=== PATIENT | male | born 1955 | race Two or more races ===

== ENCOUNTER 2025-05-31 19:40 | Inpatient (IN) | payer MEDICARE, SELFPAY ==
[2025-05-31 19:42] VITALS: BMI 40.3
[2025-05-31 19:59] VITALS: BP 152/63; PULSE 98; RESP 20; TEMP 37.8; O2SAT 95
--- NOTE | 2025-05-31 20:01 | XR_ITS ---
Examination: CT abdomen and pelvis without contrast. Coronal 3-D reconstructions. Sagittal 2-D reconstructions. Date and time of exam: May 31, 2025, 2011 hours INDICATIONS: Abdominal pain beginning 3 days ago COMPARISON: June 07, 2023 CTDI: vol (mGy): 15 DLP: (mGycm): 1004 Technique: Axial images of the abdomen have been obtained, 3 mm slice thickness Intravenous contrast material has not been administered. Low dose protocols were performed. One or more of the following dose reduction techniques were used; automated exposure control, adjustment of the mA and/or KV according to patient size, use of iterative reconstruction technique. Findings: 6 mm liver cyst No gallstones Spleen not enlarged No pancreatic or adrenal mass Bilateral renal cysts Significant bilateral renal scar formation Perinephric stranding Moderate bilateral hydronephrosis, no renal or ureteral calculi Aorta normal size Marked cystitis pattern, left bladder diverticulum, urinary bladder wall thickening Prostate tissue not depicted Small fat-containing inguinal hernia Prominent osteopenia with advanced degenerative disc disease L4-L5 IMPRESSION: Moderate bilateral hydronephrosis with prominent perinephric stranding and renal scarring Marked cystitis pattern The overall findings are consistent with vesicoureteral reflux and urinary tract infection
--- NOTE | 2025-05-31 20:02 | PD.EDRME ---
Rapid Medical Screening Exam RME Arrival date/time: 05/31/25 19:40 This is a case of 69-year-old male who is here with history of chronic kidney disease prostate cancer surgery of the prostate came in in the emergency room due to generalized abdominal pain and distention with nausea vomiting worsening of the symptoms this decided to start consult here in the emergency room Chief Complaint: Abdominal Pain Time Seen by Provider: 05/31/25 20:01 Vital signs: Vital Signs Temperature 100.1 F 05/31/25 19:59 Pulse Rate 98 05/31/25 19:59 Respiratory Rate 20 05/31/25 19:59 Blood Pressure 152/63 H 05/31/25 19:59 Pulse Oximetry (%) 95 05/31/25 19:59 Oxygen Delivery Method Room Air 05/31/25 19:59 Exam: Generalized tenderness on all quadrants of the abdomen positive guarding with abdominal distention Clinical Impression: Abdominal pain
[2025-05-31 20:27] LABS: Basophils # (Auto) 0.1 Thou/mm3 (0.0-0.2); Basophils % (Auto) 0 % (0-2.5); Eosinophils # (Auto) 0.1 Thou/mm3 (0.0-0.5); Eosinophils % (Auto) 1 % (0-10); Hematocrit 38.6 % (41.0-53.0); Hemoglobin 13.4 g/dL (13.5-16.0); Immature Granulocytes Auto 0.11 Thou/mm3 (0.00-0.00); Lymphocytes # (Auto) 1.4 Thou/mm3 (1.0-4.8); Lymphocytes % (Auto) 7 % (10-50); Mean Corpuscular HGB Conc 34.7 g/dl (31.0-37.0); Mean Corpuscular Hemoglobin 30.0 pg (25.0-35.0); Mean Corpuscular Volume 86 fL (80-100); Monocytes # (Auto) 1.8 Thou/mm3 (0.0-0.8); Monocytes % (Auto) 9 % (0-12); Neutrophils # (Auto) 16.3 Thou/mm3 (1.8-7.7); Neutrophils % (Auto) 82 % (37-80); Nucleated Red Blood Cell # 0.00 Thou/mm3 (0.00-0.00); Nucleated Red Blood Cell % 0 /100 WBC (0); Platelet Count 143 Thou/mm3 (140-440); RDW Standard Deviation 42.2 fL (35.1-43.9); Red Blood Count 4.47 Miln/mm3 (4.50-5.90); White Blood Count 19.7 Thou/mm3 (3.8-10.6)
[2025-05-31 20:50] LABS: Alanine Aminotransferase 8 U/L (10-49); Albumin, Serum 4.5 gm/dL (3.4-4.8); Albumin/Globulin Ratio 1.5 (1.2-2.2); Alkaline Phosphatase 93 U/L (46-116); Anion Gap 11 (7-16); Aspartate Amino Transferase < 8 U/L (0-34); BUN/Creatinine Ratio 8 Ratio (12-20); Bilirubin,Total 0.8 mg/dL (0.3-1.2); Blood Urea Nitrogen 34 mg/dL (9-23); Calcium 8.9 mg/dL (8.3-10.6); Calcium (Corrected) 8.9 mg/dL (8.5-10.1); Carbon Dioxide 23.6 mMol/L (20.0-31.0); Chloride 102 mMol/L (98-107); Creatinine (Component) 4.4 mg/dL (0.6-1.3); Estimated Creatinine Clearance 18.5 mL/min (>60); Globulin 3.0 gm/dL (2.3-3.5); Glucose 102 mg/dL (74-106); Lipase 22 U/L (12-53); Osmolality,Calculated 281 (275-295); Potassium 3.7 mMol/L (3.4-5.1); Sodium 137 mMol/L (136-145); Total Protein 7.5 gm/dL (5.7-8.2); eGFR 14 See Note
--- NOTE | 2025-05-31 22:41 | PRELIM_ITS ---
CT scan of the abdomen and pelvis without intravenous contrast (axial sections with sagittal and coronal reformats) May 31, 2025 2012 hours Clinical History: Abdominal pain Comparison: No prior study is available for comparison. Findings: The evaluation is limited due to lack of intravenous contrast. The lung bases demonstrate bibasilar dependent atelectasis. There is mild heterogeneous attenuation of the lower lungs, suggestive of small airways disease. A small hiatal hernia is present. There is moderate bilateral hydroureteronephrosis without ureteric or renal calculus. Additionally, the urinary bladder is hypertrophied with large urinary bladder diverticula, the largest seen at its base measuring 6.4 cm, with perivesical fat stranding. The possibilities include a chronic distal obst ructive uropathy versus a urinary tract infection. There are bilateral renal cysts (Bosniak I), the largest measuring 5.7 cm in the left kidney. The liver, gallbladder, spleen, pancreas, and adrenals are unremarkable on this noncontrast study. No evidence of bowel obstruction. A moderate amount of fecal material is present in the colon. The appendix is within normal limits. The mesentery and peritoneum are unremarkable. The aorta and its branches demonstrate atheromatous calcification without evidence of aneurysm. The retroperitoneum is unremarkable. The prostate is not visualized, likely surgically absent. Degenerative changes are identified in the spine. A small fat-containing umbilical hernia is present. Impression: 1. Moderate bilateral hydroureteronephrosis with urinary bladder hypertrophy and diverticula, suggesting chronic distal obstructive uropathy versus urinary tract infection. 2. Bilateral renal cysts (Bosniak I). 3. Other findings as described above. Recommend clinical correlation and further evaluation as necessary. Report Electronically Signed By: Ab Cloud 05/31/2025 10:40:54 PM [EST]
--- NOTE | 2025-05-31 22:58 | PD.EDMALE ---
ED Male Genitalurinary RME/HPI General Chief complaint: Abdominal Pain Stated complaint: UNABLE TO PEE Time Seen by Provider: 05/31/25 20:01 Arrival date/time: 05/31/25 19:40 RME / HPI RME / HPI Narrative: 05/31/25 19:40 This is a case of 69-year-old male who is here with history of chronic kidney disease prostate cancer surgery of the prostate came in in the emergency room due to generalized abdominal pain and distention with nausea vomiting worsening of the symptoms this decided to start consult here in the emergency room DR. ESPANA MAIN ED EVALUATION: Patient with Hx of Prostate CA s/p TURP 2 years [employer], now presenting with urinary urgency, frequency, and dysuria x 4 days. Also reports subjective fever, occasional chills, no vomiting. PMH: Heart Murmur, Hypercholesterolemia, Hypertension, Prostate Cancer treated with prostatectomy alone, CKD, BPH PSH: TURP, Prostatectomy Allergies: NKDA Social: Non-smoker, Non-drinker, No illicit drug abuse Exam: Generalized tenderness on all quadrants of the abdomen positive guarding with abdominal distention Impression: Abdominal pain Related Data Home Medications ?Medication ?Instructions ?Recorded ?Confirmed amlodipine 10 mg tablet 5 mg PO BID 05/25/21 01/05/23 aspirin 81 mg tablet,delayed 81 mg PO DAILY 05/25/21 01/05/23 release atorvastatin 20 mg tablet 20 mg PO HS 05/25/21 01/05/23 losartan 100 1 tab PO DAILY 05/25/21 01/05/23 mg-hydrochlorothiazide 25 mg tablet semaglutide 7 mg tablet (Rybelsus) 7 mg PO QAMAC 05/25/21 01/05/23 ciprofloxacin HCl 500 mg tablet 500 mg PO BID 01/05/23 01/05/23 ergocalciferol (vitamin D2) 1,250 50,000 unit PO QWEEK 01/05/23 01/05/23 mcg (50,000 unit) capsule (Vitamin D2) tamsulosin 0.4 mg capsule 0.4 mg PO QDAY 01/05/23 01/05/23 Allergies Allergy/AdvReac Type Severity Reaction Status Date / Time No Known Allergies Allergy Verified 05/31/25 19:47 Review of Systems Review of Systems Systems Reviewed: All systems reviewed, normal except as documented Past Medical History Past Medical History NEUROLOGIC: Positive Neurological Disorders (dizziness) CARDIAC: Positive Cardiac Disorders, Heart Murmur, Hypercholesterolemia and Hypertension RESPIRATORY: Positive Pneumonia (COVID) GENITOURINARY: Positive Genitourinary Disorders, Prostate Cancer and Benign Prostatic Hyperplasia ENDOCRINE: Positive Endocrine Disorders OTHER HISTORY: Positive Prostate Cancer Family History FAMILY HISTORY: Positive Family Cancer (colon ca) Surgical History OTHER SURGICAL HX: TURP, Prostatectomy ED Exam Narrative Physical exam: GEN. APPEARANCE: The patient is alert awake oriented X-3 c/o suprapubic abdominal pain, lying down comfortably, does not look ill/toxic. Patient has good eye contact. Patient is cooperative. VITALS: All vitals were reviewed and the pulse ox is 95%, which is normal according to my interpretation HEENT: Normocephalic, atraumatic and nontender. Pupils are equal and reactive. Oral mucosa is moist. NECK: Supple, nontender, no meningismus, no JVD. There is no thyromegaly and no lymphadenopathy. CHEST: Nontender on palpation no deformity and no crepitus. CARDIOVASCULAR: Heart regular rhythm, no murmur or gallop rub or extra beats. LUNGS: Clear to auscultation bilaterally with symmetrical chest rise. No laboring tachypnea or wheezing. No intercostal subcostal retraction. No rales and no rhonchi. ABDOMEN: Soft, flat, mildly distended, palpable urinary bladder which appears to be distended and TTP, no guarding or rebound tenderness. There are no abnormal masses palpated. No pulsatile masses or bruits. Active and normal bowel sounds. EXTREMITIES: Normal inspection and palpation. No edema. No cyanosis. Patient is able to move all 4 extremities well SKIN: Warm and dry, no rashes noted. MUSCULOSKELETAL: No lumbar or midline bony tenderness. There is no CVA tenderness. No paraspinal muscle spasm or tenderness. NEURO: Cranial nerves II through XII grossly intact. There are no focal neurologic deficits noted. GCS is 15 PSYCHIATRIC: Patient is in normal mood and affect, cooperative. LYMPHATICS: No major lymphadenopathy noted. Course Quality Measures none Orders Category Date Time Status [facility] to [facility] Routine Care 05/31/25 23:15 Ordered Transfer to another facility [Transfer/Discharge] Stat Discharge 06/01/25 06:[address] abdomen pelvis wo con Stat Exams 05/31/25 20:01 Taken CBC Stat Lab 05/31/25 20:18 Completed Comprehensive Metabolic Panel Stat Lab 05/31/25 20:18 Completed Lipase Stat Lab 05/31/25 20:18 Completed Urinalysis Stat Lab 06/01/25 04:20 Completed Lidocaine Jelly 2% Urojet [Xylocaine Jelly 2% Urojet] Med 06/01/25 00:24 Discontinued See Dose Instructions TOP X1 ONE Prochlorperazine Inj [Compazine Inj] Med 06/01/25 01:32 Discontinued 5 mg IV X1 ONE cefTRIAXone/D5w 1gm IV premix [Rocephin/D5w 1gm IV Med 06/01/25 05:49 Active premix] 1 gm in 50 ml IV X1 fentaNYL INJ [Sublimaze Inj] Med 06/01/25 01:32 Discontinued 50 mcg IVP X1 ONE fentaNYL INJ [Sublimaze Inj] Med 06/01/25 03:45 Discontinued 50 mcg IVP X1 ONE fentaNYL INJ [Sublimaze Inj] Med 06/01/25 04:12 Discontinued 50 mcg IVP X1 ONE Vital Signs Vital signs: Vital Signs Temperature 100.1 F 05/31/25 19:59 Pulse Rate 98 05/31/25 19:59 Respiratory Rate 20 05/31/25 19:59 Blood Pressure 152/63 H 05/31/25 19:59 Pulse Oximetry (%) 95 05/31/25 19:59 Oxygen Delivery Method Room Air 05/31/25 19:59 Urogenital - Male MDM Narrative MDM Narrative:: Scribe Attestation: ISally, am scribing for and in the presence of Dr. Figueroa. Provider Notation: Although this document has been carefully reviewed, there may still be some phonetic and other typographical errors. These errors are purely grammatical due to imperfections in the software program and should not be construed in any way to compromise the substance of the patient's medical care during this visit. Patient with Hx of Prostate CA s/p TURP 2 years [employer], now presenting with urinary urgency, frequency, and dysuria x 4 days. Also reports subjective fever, occasional chills, no vomiting. Please see PE findings. Laboratory markers demonstrated markedly elevated WBC of 19.7, hemoglobin of 13.5, left shift, no bandemia. Serum chemistries demonstrated acute on chronic renal insufficiency. Potassium is normal. UA demonstrates pyuria, although no bacteria are present. Leukocyte positive and nitrate negative. Patient was placed in classroom monitor, administered emperic ABX. Patient remained hemodynamically stable throughout ED course. Multiple attempts to place lucas catheter were unsuccessful. Suprapubic catheter placed successfully with drainage of 1500 cc clear urine. Contact made with [facility] regarding need to transfer and urological evaluation. Final diagnoses include acute urinary retention, obstructive uropathy, and UTI. Patient data External records reviewed:: [facility] previous records (Reviewed prior ED records from 06/08/23. Patient was seen for Acute pyelonephritis.) Clinical information provided by:: patient Social determinants that could affect healthcare access:: none Patient has the following chronic illnesses:: Heart Murmur, Hypercholesterolemia, Hypertension, Prostate Cancer, BPH How is presenting disease/condition affected by chronic disease/condition?: exacerbated by Evaluation data The following diagnostics were reviewed and interpreted by me:: lab results and radiology exam(s) Lab and/or radiology exams considered but not ordered:: None Interpretation Summary: RADIOLOGY Abdomen/Pelvis CT: Findings: The evaluation is limited due to lack of intravenous contrast. The lung bases demonstrate bibasilar dependent atelectasis. There is mild heterogeneous attenuation of the lower lungs, suggestive of small airways disease. A small hiatal hernia is present. There is moderate bilateral hydroureteronephrosis without ureteric or renal calculus. Additionally, the urinary bladder is hypertrophied with large urinary bladder diverticula, the largest seen at its base measuring 6.4 cm, with perivesical fat stranding. The possibilities include a chronic distal obstructive uropathy versus a urinary tract infection. There are bilateral renal cysts (Bosniak I), the largest measuring 5.7 cm in the left kidney. The liver, gallbladder, spleen, pancreas, and adrenals are unremarkable on this noncontrast study. No evidence of bowel obstruction. A moderate amount of fecal material is present in the colon. The appendix is within normal limits. The mesentery and peritoneum are unremarkable. The aorta and its branches demonstrate atheromatous calcification without evidence of aneurysm. The retroperitoneum is unremarkable. The prostate is not visualized, likely surgically absent. Degenerative changes are identified in the spine. A small fat-containing umbilical hernia is present. Impression: 1. Moderate bilateral hydroureteronephrosis with urinary bladder hypertrophy and diverticula, suggesting chronic distal obstructive uropathy versus urinary tract infection. 2. Bilateral renal cysts (Bosniak I). 3. Other findings as described above. Recommend clinical correlation and further evaluation as necessary. Medications / Prescriptions Medications or Prescriptions considered but not ordered:: None Medication administrations:: Medication Administration History Ceftriaxone Sodium/Dextrose (Rocephin/D5w 1gm Iv Premix) 1 gm in 50 mls @ 100 mls/hr IV X1 ONE Stop: 06/01/25 06:18 Discontinued Medications Fentanyl Citrate (Fentanyl Cit Inj 50 Mcg/Ml Amp 2ml) 50 mcg IVP X1 ONE Stop: 06/01/25 01:33 Last Admin: 06/01/25 02:36 Dose: 50 mcg Documented By: CCT Fentanyl Citrate (Fentanyl Cit Inj 50 Mcg/Ml Amp 2ml) 50 mcg IVP X1 ONE Stop: 06/01/25 03:46 Last Admin: 06/01/25 03:54 Dose: 50 mcg Documented By: EE Fentanyl Citrate (Fentanyl Cit Inj 50 Mcg/Ml Amp 2ml) 50 mcg IVP X1 ONE Stop: 06/01/25 04:13 Last Admin: 06/01/25 04:19 Dose: 50 mcg Documented By: CCT Lidocaine HCl (Lidocaine Jelly 2% (Urojet) 10 Ml Tube) 0 ml TOP X1 ONE Stop: 06/01/25 00:25 Last Admin: 06/01/25 00:48 Dose: 10 ml Documented By: CCT Prochlorperazine Edisylate (Prochlorperazine Inj 5 Mg/Ml Vial 2 Ml) 5 mg IV X1 ONE; Protocol Stop: 06/01/25 01:33 Last Admin: 06/01/25 02:37 Dose: 5 mg Documented By: CCT See above if any Consultations Consultation(s) initiated? (list below): Yes Consultation #1 (Physician, Specialty, Details): Discussed with [facility] for transfer. Reviewed the patient?s HPI, PMHx, lab and/or radiology results. Discussed treatment plan. Accepts patient for transfer. Time: 05:46 Diagnosis Urogenital Male Differential Diagnosis: urinary tract infection, priapism, urethritis, epididymitis, prostatitis, acute retention of urine and inguinal hernia Most likely diagnosis given after review of the tests above:: Acute urinary retention, obstructive uropathy, and UTI Admission Indicated Admission indicated?: not indicated Explain why admission is indicated or not indicated:: Pending transfer to [facility] Medical Admission Request Was there a request for admission?: No Disposition Plan Disposition Plan: Transfer Critical Care Time Critical Care Time Critical Care Time: Yes Total Critical Care Time (min.): 40 Attestation: The high probability of sudden, clinically significant deterioration in the patient?s condition required the highest level of my preparedness to intervene urgently. The services I provided to this patient were to treat and/or prevent clinically significant deterioration. Services included the following: chart data review, reviewing nursing notes and/or old charts, documentation time, literacy consultant collaboration regarding findings and treatment options, medication orders and management, direct patient care, vital sign assessments and ordering, interpreting and reviewing diagnostic studies and lab tests. Aggregate critical care time includes only time during which I was engaged in work directly related to the patient?s care, as described above, whether at bedside or elsewhere in the Emergency Department. It did not include time spent performing other reported procedures or the services of residents, students, nurses or physician assistants. Discharge Plan Plan Patient Disposition: [facility] Pt Being Transferred to: [facility] Service Needed for Transfer: Urology Prescriptions/Referrals Prescriptions/Med Rec: No Action losartan-hydrochlorothiazide 100-25 mg tablet 1 tab PO DAILY atorvastatin 20 mg tablet 20 mg PO HS amlodipine 10 mg tablet 5 mg PO BID Patient Comments: TAKE ONE TABLET BY MOUTH EVERY DAY aspirin 81 mg tablet,delayed release (DR/EC) 81 mg PO DAILY Patient Comments: TAKE ONE TABLET BY MOUTH EVERY DAY Rybelsus 7 mg tablet 7 mg PO QAMAC ciprofloxacin HCl 500 mg tablet 500 mg PO BID Patient Comments: TAKE ONE TABLET BY MOUTH TWICE DAILY FOR INFECTION tamsulosin 0.4 mg capsule 0.4 mg PO QDAY Patient Comments: TAKE ONE CAPSULE BY MOUTH EVERY DAY ergocalciferol (vitamin D2) [Vitamin D2] 1,250 mcg (50,000 unit) capsule 50,000 unit PO QWEEK Patient Comments: TAKE ONE CAPSULE BY MOUTH ONCE WEEKLY Referrals: Usman ([facility]BENNY Watson [Primary Care Provider] - In 1 week Problem List Clinical Impression: Acute urinary retention, Obstructive uropathy, UTI (urinary tract infection) Patient/Caregiver Discharge Instructions Print Language: Mongolian Stand Alone Forms: [facility] Award Info., Patient Portal Info Letter
[2025-06-01] VITALS (10 sets, daily range): BP systolic 102–150; BP diastolic 51–98; PULSE 87–106; RESP 16–20; TEMP 36.5–37.7; O2SAT 92–99; BMI 41.8
[2025-06-01] MEDS: LIDOCAINE JELLY 2% (Urojet) 10 ML TUBE TOP (00:48)
--- NOTE | 2025-06-01 00:50 | PC.NURSE ---
Attempted insertion of Morris catheter per provider order. Initial attempt with 16Fr catheter unsuccessful due to resistance. Second attempt made using smaller 14Fr catheter; unable to advance catheter into bladder. Procedure discontinued. Patient tolerated poorly with some discomfort noted. Urine not obtained. Henry notified of unsuccessful catheterization attempt. Awaiting further orders.
[2025-06-01] MEDS: fentaNYL CIT INJ 50 mCg/ML AMP 2ML IVP ×3 (02:36→04:19)
[2025-06-01] MEDS: PROCHLORPERAZINE INJ 5 MG/ML VIAL 2 ML IV (02:37)
--- NOTE | 2025-06-01 04:44 | PD.RESPROC ---
PROCEDURES: Procedure Date / Time 06/01/25 0444 Catheter Insertion (Urinary) Informed consent obtained: from patient Time out done, and the following verified: correct patient, side and site, procedure, patient position and implants and/or equipment Prophylactic antibiotics given: No Bladder Scan/Ultrasound used before catheterization: Yes Estimated amount of urin (mLs): 1,000 Preparation: Povidone-Iodine Type of catheter inserted: other (Suprapubic) Topical anesthesia used: Yes Results: successfully catheterized-immediate flow and ultrasound used for placement verification Patient tolerated procedure: well EBL(ml): 5 Complications: pain Additional comments: A suprapubic catheter insertion was performed under sterile technique following appropriate informed consent. The patient was placed in a supine position with the bladder distended by a full urinary bladder or using sterile saline if needed. The skin over the suprapubic area was cleaned and draped in a sterile fashion. Local anesthesia (e.g., 1% lidocaine) was administered to the planned insertion site, and the bladder was identified using ultrasound guidance or palpation. A small incision was made in the skin, and a trocar or dilator was used to access the bladder. The catheter was then advanced through the incision into the bladder, with urine flow confirming correct placement. The catheter was secured to the skin with sutures or a securement device, and sterile dressing was applied. The procedure was well tolerated, and there were no immediate complications. Post-procedure instructions were provided, including signs of infection, catheter care, and follow-up. The patient was stable at the conclusion of the procedure and transferred to recovery for monitoring.
[2025-06-01 05:22] LABS: Collection Type, Urine Clean Catch; Squamous Epithelial Cell,Urine 0 /hpf (0-5)
[2025-06-01 05:30] LABS: Bilirubin,Urine Negative (Negative); Blood,Urine 3+ (Negative); Budding Yeast,Urine Present; Clarity,Urine Turbid (Clear/Hazy); Color,Urine Dark-Brown (Lt Yel-Yel); Glucose, Urine Negative (Negative); Ketones,Urine Negative (Negative); Leukocyte Esterase,Urine Positive (Negative); Nitrite,Urine Negative (Negative); PH,Urine 6.0 (5.0-7.0); Protein,Urine 3+ (Neg - Trace); RBC,Urine 114 /hpf (0-3); Specific Gravity,Urine 1.014 (1.001-1.035); Urobilinogen,Urine Negative mg/dL (0.0-1.0); WBC,Urine 999 /hpf (0-5)
--- NOTE | 2025-06-01 05:46 | PC.NURSE ---
DR. OLIVEROS IS ON THE PHONE WITH [facility] FROM [facility] AT THIS TIME FOR POSSIBLE TRANSFER.
[2025-06-01] MEDS: cefTRIAXone/D5w 1gm IV premix 1 GM/50 ML BAG IV (06:31)
--- NOTE | 2025-06-01 07:44 | EDNOTE_ITS ---
Emergency Room Addendum Addendum Narrative: 0600: Care assumed from Dr. Figueroa, the previous shift emergency physician. Past medical, surgical, social and family history reviewed. Vitals and home medications reviewed. I will assume the care of the patient at this time, pending transfer for urology. Please refer to the emergency department record for history and examination from initial visit.? Physical exam by me shows patient under no acute distress at this time. 0740: Spoke to [facility], they do not believe the patient needs to be transferred. 0745: Discussed test HPI, PMHx, lab, radiology results and/or management with resident working with the hospitalist. Will admit for further evaluation and management. Accepts patient for admission.
--- NOTE | 2025-06-01 08:55 | PC.CM ---
5408 I received a call from the transfer center at [facility]. They stated Dr. Talbot reviewed patient's information and he feels patient does not need to be transferred. He states patient has a nephrostomy tube in place and our hospitalist team can manage patient. Dr. Talbot stated he would be willing to follow patient as outpatient once he is discharged. I spoke to Dr. Alvarez and she agrees with the plan. She states she is going to admit the patient and and we can cancel the transfer request. [id number] I received a call from Cristóbal in the ED stating they reach out to [facility] for urology services.
[2025-06-01 10:09] LABS: Albumin, Serum 4.1 gm/dL (3.4-4.8); Anion Gap 8 (7-16); BUN/Creatinine Ratio 8 Ratio (12-20); Blood Urea Nitrogen 38 mg/dL (9-23); Calcium 8.6 mg/dL (8.3-10.6); Calcium (Corrected) 8.6 mg/dL (8.5-10.1); Carbon Dioxide 26.1 mMol/L (20.0-31.0); Chloride 105 mMol/L (98-107); Creatinine (Component) 4.8 mg/dL (0.6-1.3); Estimated Creatinine Clearance 16.9 mL/min (>60); Glucose 126 mg/dL (74-106); Osmolality,Calculated 288 (275-295); Phosphorous 4.2 mg/dL (2.4-5.1); Potassium 4.1 mMol/L (3.4-5.1); Sodium 139 mMol/L (136-145); eGFR 12 See Note
--- NOTE | 2025-06-01 10:56 | ESHP_ITS ---
<Statement entered by Rachael Rios MD - 06/01/25 15:30> Patient was seen and examined at bedside. I agree on the assessment and plan on this note as documented by resident Charlette Handy DO PGY1. 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 CT abdomen pelvis in ED showed bilateral hydronephrosis with prominent perinephric stranding and renal scarring, cystitis pattern. Patient had suprapubic catheter placed by ER physician, has good output. Patient admitted for moderate bilateral hydronephrosis status post suprapubic catheter, acute on ?chronic kidney injury and urinary tract infection. Will be started on ceftriaxone, will continue to monitor urine output, will repeat renal panel later in the day today. Patient is pending med reconciliation, will obtain urine electrolytes as well. Will consider nephrology consult if patient continues to have worsening kidney function in AM. Case discussed with attending Dr. Pardeep Rios MD PGY-2 Documentation for date of: 06/01/25 HPI History of Present Illness History of present illness: 69-year-old male with past medical history of hypertension, diabetes mellitus, following a heart and kidney doctor, chronic kidney disease, prostate cancer status post TURP, past surgical history of bilateral hernia presents with unability to urinate x 3 days with pain and discomfort. Patient reported had surgery for prostate cancer in [place]. Primary doctors Dr. Shirley Mary in [place]. Last appointment follow-up 6 months ago. Admitted urinary urgency, frequency, dysuria, subjective fever, occasional chills. ED: WBC 19.7, BUN 34, creatinine 4.4, eGFR 14. UA positive RBC and WBC. Suprapubic catheter was placed. Urology from [facility] was consulted, no need to be transferred at this time. Exam Vital Signs Temp Pulse Resp BP Pulse Ox O2 Del Method O2 Flow Rate 98.0 F 87 16 147/98 H 99 Room Air 2 06/01/25 09:07 06/01/25 09:07 06/01/25 09:07 06/01/25 09:07 06/01/25 09:07 06/01/25 09:07 06/01/25 06:00 Narrative Exam GENERAL APPEARANCE: AOx4. NAD, activity normal for age, well developed/ well nourished, no cyanosis, pallor, or diaphoresis. HEENT: Normocephalic atraumatic, no facial trauma, neck is supple. Lids/conjunctiva normal. Mucous membranes moist, nares normal, lips/teeth normal uvula midline without oral pharyngeal erythema, exudate or swelling TMs normal bilaterally. No lymphangitis/lymphedema. CARDIAC: Regular rate and rhythm, S1+S2 heard. No murmurs, rubs, or gallops noted RESPIRATORY: Clear to auscultation bilaterally. No increase work of breathing ABDOMINAL: NBS. NT. Soft, distended, central obesity. Suprabupic catheter in place, draining blood-tinge urine. No pulsatile masses on exam, rebound tenderness, Mccoy sign or pain over Mcburney's point. MUSCLES/EXTREMITIES: No abnormal range of motion, no swelling. DERM: Warm, pink and dry. No rashes, dermatoses, petechiae or lesions. NEUROLOGICAL: Speech is clear and appropriate. Normal level of consciousness. Gait and coordination are normal. 5/5 strength in all extremities. PSYCH: Normal mood and affect. Judgement/competence is appropriate Results: Labs 05/31/25 20:18 06/01/25 09:19 Labs: Short CBC 05/31/25 Range/Units 20:18 WBC 19.7 H (3.8-10.6) Thou/mm3 Hgb 13.4 L (13.5-16.0) g/dL Hct 38.6 L (41.0-53.0) % Plt Count 143 (140-440) Thou/mm3 BMP 05/31/25 06/01/25 20:18 09:19 Sodium 137 139 Potassium 3.7 4.1 Chloride 102 105 Carbon Dioxide 23.6 26.1 BUN 34 H 38 H Creatinine 4.4 H* 4.8 H* Glucose 102 126 H Calcium 8.9 8.6 Liver Function 05/31/25 06/01/25 Range/Units 20:18 09:19 Total Bilirubin 0.8 (0.3-1.2) mg/dL AST < 8 (0-34) U/L ALT 8 L (10-49) U/L Alkaline Phosphatase 93 (46-116) U/L Albumin 4.5 4.1 (3.4-4.8) gm/dL Urine 06/01/25 Range/Units 04:20 Urine Color Dark-Brown (Lt Yel-Yel) Urine Clarity Turbid A (Clear/Hazy) Urine pH 6.0 (5.0-7.0) Ur Specific [place] 1.014 (1.001-1.035) Urine Protein 3+ A (Neg - Trace) Urine Glucose (UA) Negative (Negative) Quality Measures Quality Measures VTE prophylaxis Advance care planning discussed with:: patient Medications Home Medications and Allergies Home Medications ?Medication ?Instructions ?Recorded ?Confirmed ?Type amlodipine 10 mg tablet 5 mg PO BID 05/25/21 5 History aspirin 81 mg tablet,delayed 81 mg PO DAILY 05/25/21 1 08/01/24 History release atorvastatin 20 mg tablet 20 mg PO HS 05/25/21 5 History losartan 100 1 tab PO DAILY 05/25/2104/17 History mg-hydrochlorothiazide 25 mg tablet ferrous sulfate 325 mg (65 mg 325 mg PO DAILY 06/01/25 06/01/25 History iron) tablet metoprolol succinate 25 mg 25 mg PO Q12H 06/01/2504/17 History tablet,extended release 24 hr solifenacin 10 mg tablet 10 mg PO .daily 06/01/2504/17 History vibegron 75 mg tablet (Gemtesa) 75 mg PO QDAY 06/01/25 06/01/25 History Allergies Allergy/AdvReac Type Severity Reaction Status Date / Time No Known Allergies Allergy Verified 05/31/25 19:47 Visit Medications Acetaminophen (Acetaminophen 325 Mg Tablet) 650 mg PO Q6H PRN PRN Reason: Fever >100.4 and pain 1-3 Stop: 07/01/25 08:57 Hydrocodone Bitart/Acetaminophen (Hydrocodone/Apap 10/325 Tab) 1 tab PO Q4H PRN PRN Reason: PAIN SCALE 4-10(Mod-Sev Stop: 06/06/25 08:57 Ceftriaxone Sodium/Dextrose (Rocephin/D5w 1gm Iv Premix) 1 gm in 50 mls @ 100 mls/hr IV QDAY HEBER Stop: 06/09/25 08:59 Ondansetron HCl (Ondansetron Inj 2 Mg/Ml Inj 2 Ml) 4 mg IVP Q6H PRN; Protocol PRN Reason: NAUSEA OR VOMITING Stop: 07/01/25 08:57 Sennosides (Senna Tablet) 2 tab PO QDAY HEBER; Protocol Stop: 07/01/25 08:59 Last Admin: 06/01/25 10:09 Dose: 2 tab Discontinued Medications Fentanyl Citrate (Fentanyl Cit Inj 50 Mcg/Ml Amp 2ml) 50 mcg IVP X1 ONE Stop: 06/01/25 01:33 Last Admin: 06/01/25 02:36 Dose: 50 mcg Fentanyl Citrate (Fentanyl Cit Inj 50 Mcg/Ml Amp 2ml) 50 mcg IVP X1 ONE Stop: 06/01/25 03:46 Last Admin: 06/01/25 03:54 Dose: 50 mcg Fentanyl Citrate (Fentanyl Cit Inj 50 Mcg/Ml Amp 2ml) 50 mcg IVP X1 ONE Stop: 06/01/25 04:13 Last Admin: 06/01/25 04:19 Dose: 50 mcg Ceftriaxone Sodium/Dextrose (Rocephin/D5w 1gm Iv Premix) 1 gm in 50 mls @ 100 mls/hr IV X1 ONE Stop: 06/01/25 06:18 Last Infusion: 06/01/25 07:12 Dose: Infused Influenza Virus Vaccine Quadrival (Influenza Virus 0.5 Ml Syringe 2025-26) 0.5 ml IMi .ONCE ONE Stop: 06/01/25 10:30 Last Admin: 06/01/25 10:51 Dose: Not Given Lidocaine HCl (Lidocaine Jelly 2% (Urojet) 10 Ml Tube) 0 ml TOP X1 ONE Stop: 06/01/25 00:25 Last Admin: 06/01/25 00:48 Dose: 10 ml Prochlorperazine Edisylate (Prochlorperazine Inj 5 Mg/Ml Vial 2 Ml) 5 mg IV X1 ONE; Protocol Stop: 06/01/25 01:33 Last Admin: 06/01/25 02:37 Dose: 5 mg Assessment & Plan Plan 69 years old male with past medical history of bilateral hernia status post repaired, CKD and prostate cancer status post TURP, admitted for urinary retention status post suprapubic catheter in ED. CT abdominal pelvis showed moderate bilateral hydronephrosis with prominent perinephric stranding and renal scarring, marked cystitis pattern, concerning for vesicoureteral reflux and UTI. # Urinary retention # Moderate bilateral hydronephrosis # Suprapubic catheter # Acute on chronic kidney disease Chief complain of urinary retention x 3 days. Past medical history of bilateral hernia status post repaired, CKD and prostate cancer status post TURP, admitted for urinary retention status post suprapubic catheter. WBC 19.7, BUN 34, creatinine 4.4, eGFR 14. Last creatinine 2 years ago 2.7. UA positive RBC and WBC. DDx: chronic distal obstructive uropathy vs. UTI. Plan: - Consult urology for possible vesicoureteral reflux in the setting of moderate bilateral hydronephrosis with renal scarring - Suprabupic catheter care - Avoid nephrotoxic agents - Antibiotics: Ceftriaxone 1g PPx 06/02-06/09 - Pain: Tylenol 650mg Q6H PRN, [place] 10 PO Q4H PRN - Monitor renal panel # History of prostate cancer status post TURP - Managed outpatient with urologist - Follow up with daughter for urologist's name Health Maintenance: Code status: Full DVT prophylaxis: Ambulation GI prophylaxis: none Diet: Regular Morris: Suprabupic catheter Lines: PIV Supplemental O2: None Disposition: Medsurg Assessment and plan discussed with my attending physician Dr. Mayo and Dr. Rios (PGY-2). Dr. Handy (PGY-1) ? vice president planning Attending Provider Attestation/Addendum I have discussed and was present for the essential components of the history, physical examination, diagnosis, and treatment plan with the resident. I agree with the patient's care as documented by the resident and amended herein by me. Basim Mayo DO. Although this document has been carefully reviewed, there may still be some phonetic and other typographical errors. These errors are purely grammatical due to imperfections in the software program and should not be construed in any way to compromise the substance of the patient's medical care during this visit.
[2025-06-01 14:57] LABS: Urea Nitrogen, Random Urine 200.0 mg/dL (350.0-1000.0)
[2025-06-01 21:36] LABS: Chloride,Urine Random 66.8 mMol/L (55.0-125.0); Creatinine,Random Urine 31 mg/dL (30-125); Potassium,Urine Random 17 mMol/L (12-62); Protein Total, Random Urine 412 mg/dL (1-14); Sodium,Urine Random 74.8 mMol/L (20.0-110.0)
[2025-06-02] VITALS: BP 118/58; PULSE 85; RESP 20; TEMP 36.8; O2SAT 92
[2025-06-02 04:00] VITALS: BP 105/67; PULSE 83; RESP 18; TEMP 37.2; O2SAT 92
[2025-06-02 05:22] LABS: Basophils # (Auto) 0.0 Thou/mm3 (0.0-0.2); Basophils % (Auto) 0 % (0-2.5); Eosinophils # (Auto) 0.2 Thou/mm3 (0.0-0.5); Eosinophils % (Auto) 2 % (0-10); Hematocrit 35.3 % (41.0-53.0); Hemoglobin 12.0 g/dL (13.5-16.0); Immature Granulocytes Auto 0.06 Thou/mm3 (0.00-0.00); Lymphocytes # (Auto) 1.1 Thou/mm3 (1.0-4.8); Lymphocytes % (Auto) 10 % (10-50); Mean Corpuscular HGB Conc 34.0 g/dl (31.0-37.0); Mean Corpuscular Hemoglobin 29.4 pg (25.0-35.0); Mean Corpuscular Volume 87 fL (80-100); Monocytes # (Auto) 0.9 Thou/mm3 (0.0-0.8); Monocytes % (Auto) 8 % (0-12); Neutrophils # (Auto) 9.5 Thou/mm3 (1.8-7.7); Neutrophils % (Auto) 80 % (37-80); Nucleated Red Blood Cell # 0.00 Thou/mm3 (0.00-0.00); Nucleated Red Blood Cell % 0 /100 WBC (0); Platelet Count 146 Thou/mm3 (140-440); RDW Standard Deviation 42.0 fL (35.1-43.9); Red Blood Count 4.08 Miln/mm3 (4.50-5.90); White Blood Count 11.8 Thou/mm3 (3.8-10.6)
[2025-06-02 06:00] LABS: Alanine Aminotransferase 10 U/L (10-49); Albumin, Serum 3.9 gm/dL (3.4-4.8); Albumin/Globulin Ratio 1.8 (1.2-2.2); Alkaline Phosphatase 76 U/L (46-116); Anion Gap 10 (7-16); Aspartate Amino Transferase 13 U/L (0-34); BUN/Creatinine Ratio 9 Ratio (12-20); Bilirubin,Total 0.4 mg/dL (0.3-1.2); Blood Urea Nitrogen 36 mg/dL (9-23); Calcium 8.7 mg/dL (8.3-10.6); Calcium (Corrected) 8.8 mg/dL (8.5-10.1); Carbon Dioxide 27.0 mMol/L (20.0-31.0); Chloride 106 mMol/L (98-107); Creatinine (Component) 3.8 mg/dL (0.6-1.3); Estimated Creatinine Clearance 21.8 mL/min (>60); Globulin 2.2 gm/dL (2.3-3.5); Glucose 97 mg/dL (74-106); Magnesium 2.2 mg/dL (1.6-2.6); Osmolality,Calculated 293 (275-295); Phosphorous 3.8 mg/dL (2.4-5.1); Potassium 3.4 mMol/L (3.4-5.1); Sodium 143 mMol/L (136-145); Total Protein 6.1 gm/dL (5.7-8.2); eGFR 16 See Note
[2025-06-02 07:43] VITALS: BP 155/80; PULSE 90; RESP 18; TEMP 36.3; O2SAT 95
--- NOTE | 2025-06-02 08:09 | ESPR_ITS ---
<Statement entered by Rachael Rios MD - 06/03/25 04:57> Patient was seen and examined at bedside. I agree on the assessment and plan on this note as documented by resident Unique Handy MD PGY1. 69-year-old male with past medical history as below admitted for acute urinary retention status post suprapubic catheter placement acute on chronic kidney injury, patient's renal function is improving today, patient continues to have gross hematuria with urine drainage. Complains of some discomfort/burning sensation at the Morris, urology was consulted per urologist patient should follow outpatient with urologist who did the prostate surgery, patient is unable to provide details, will discuss with patient's daughter in a.m. otherwise urology recommends obtaining old medical history and records and following up in his office outpatient if patient is unable to follow-up with primary urologist. Otherwise white cell count downtrending, patient does have chronic normocytic anemia, workup to be done outpatient. Case discussed with attending Dr. Pardeep Mayo, DO Rachael Rios MD PGY-2 Documentation for date of: 06/02/25 Subjective Subjective Interval history: No acute event overnight. Patient endorsed burning sensation at the tip of his penis, Morris catheter in place. Patient has not been able to urinate via his urethra, burning sensation at rest. No visible lesions noted on physical exam. Denied other urinary symptoms. Per nurse, 24h urine output was 5.3L, dark yellow all day yesterday and moderate blood-tinged overnight. Patient is not currently on IVF but drinks a large amount of fluid. Per patient, his kidney doctor recommended him to drink more water. Admitted history of pre-diabetes. BG is wnl today. Patient has not had a BM for 3 days. KUB showed moderate air and stool in colon. Will start on Mg Citrate x 1. JOHAN improving Cr 4.8 -> 3.8 WBC 19.7 -> 11.8 on Rocephin. Consulted Urologist, Dr. Shaffer, appreciate recs. Exam Vital Signs Temp Pulse Resp BP Pulse Ox O2 Del Method O2 Flow Rate 97.3 F 90 18 155/80 H 95 Room Air 2 06/02/25 07:43 06/02/25 07:43 06/02/25 07:43 06/02/25 07:43 06/02/25 07:43 06/02/25 07:43 06/01/25 20:00 Narrative Exam GENERAL APPEARANCE: AOx4. NAD, activity normal for age, well developed/ well nourished, no cyanosis, pallor, or diaphoresis. HEENT: Normocephalic atraumatic, no facial trauma, neck is supple. Lids/conjunctiva normal. Mucous membranes moist, nares normal, lips/teeth normal uvula midline without oral pharyngeal erythema, exudate or swelling TMs normal bilaterally. No lymphangitis/lymphedema. CARDIAC: Regular rate and rhythm, S1+S2 heard. No murmurs, rubs, or gallops noted RESPIRATORY: Clear to auscultation bilaterally. No increase work of breathing ABDOMINAL: NBS. NT. Soft, distended, central obesity. Suprapubic catheter in place, draining blood-tinge urine. No pulsatile masses on exam, rebound tenderness, Mccoy sign or pain over Mcburney's point. MUSCLES/EXTREMITIES: No abnormal range of motion, no swelling. DERM: Warm, pink and dry. No rashes, dermatoses, petechiae or lesions. NEUROLOGICAL: Speech is clear and appropriate. Normal level of consciousness. Gait and coordination are normal. 5/5 strength in all extremities. PSYCH: Normal mood and affect. Judgement/competence is appropriate Objective Labs 06/02/25 04:39 06/02/25 04:39 Labs: Laboratory Results - last 24 hr 06/01/25 06/01/25 06/01/25 09:19 12:40 20:25 WBC RBC Hgb Hct MCV MCH MCHC RDW Std Deviation Plt Count Neut % (Auto) Lymph % (Auto) [place] % (Auto) Eos % (Auto) Baso % (Auto) Neut # (Auto) Lymph # (Auto) [place] # (Auto) Eos # (Auto) Baso # (Auto) Immature Gran # (Auto) Absolute Nucleated RBC Immature Gran % Nucleated RBC % Sodium 139 Potassium 4.1 Chloride 105 Carbon Dioxide 26.1 Anion Gap 8 BUN 38 H Creatinine 4.8 H* Estim Creat Clear Calc 16.9 L eGFR 12 L* BUN/Creatinine Ratio 8 L Glucose 126 H Calculated Osmolality 288 Calcium 8.6 Corrected Calcium 8.6 Phosphorus 4.2 Magnesium Total Bilirubin AST ALT Alkaline Phosphatase Total Protein Albumin 4.1 Globulin Albumin/Globulin Ratio Ur Random Creatinine 31 U Random Total Protein 412 H Ur Random Sodium 74.8 Ur Random Potassium 17 Ur Random Chloride 66.8 Ur Random Urea Nitrogn 200.0 L 06/02/25 04:39 WBC 11.8 H D RBC 4.08 L Hgb 12.0 L Hct 35.3 L MCV 87 MCH 29.4 MCHC 34.0 RDW Std Deviation 42.0 Plt Count 146 Neut % (Auto) 80 Lymph % (Auto) 10 [place] % (Auto) 8 Eos % (Auto) 2 Baso % (Auto) 0 Neut # (Auto) 9.5 H Lymph # (Auto) 1.1 [place] # (Auto) 0.9 H Eos # (Auto) 0.2 Baso # (Auto) 0.0 Immature Gran # (Auto) 0.06 H Absolute Nucleated RBC 0.00 Immature Gran % 1 H Nucleated RBC % 0 Sodium 143 Potassium 3.4 D Chloride 106 Carbon Dioxide 27.0 Anion Gap 10 BUN 36 H Creatinine 3.8 H D Estim Creat Clear Calc 21.8 L eGFR 16 L BUN/Creatinine Ratio 9 L Glucose 97 Calculated Osmolality 293 Calcium 8.7 Corrected Calcium 8.8 Phosphorus 3.8 Magnesium 2.2 Total Bilirubin 0.4 AST 13 ALT 10 Alkaline Phosphatase 76 Total Protein 6.1 Albumin 3.9 Globulin 2.2 L Albumin/Globulin Ratio 1.8 Ur Random Creatinine U Random Total Protein Ur Random Sodium Ur Random Potassium Ur Random Chloride Ur Random Urea Nitrogn Quality Measures Quality Measures VTE prophylaxis Advance care planning discussed with:: patient Assessment & Plan Assessment Current Active Medications: Generic Name Dose Route Start Last Admin Trade Name Freq PRN Reason Stop Dose Admin Acetaminophen 650 mg 06/01/25 08:58 Acetaminophen 325 Mg Tablet PO 07/01/25 08:57 Q6H PRN Fever >100.4 and pain 1-3 Hydrocodone Bitart/Acetaminophen 1 tab 06/01/25 08:58 Hydrocodone/Apap 10/325 Tab PO 06/06/25 08:57 Q4H PRN PAIN SCALE 4-10(Mod-Sev Ceftriaxone Sodium/Dextrose 1 gm in 50 mls @ 100 mls/hr 06/02/25 09:00 Rocephin/D5w 1gm Iv Premix IV 06/09/25 08:59 QDAY HEBER Ondansetron HCl 4 mg 06/01/25 08:58 Ondansetron Inj 2 Mg/Ml Inj 2 Ml IVP 07/01/25 08:57 Q6H PRN NAUSEA OR VOMITING Protocol Sennosides 2 tab 06/01/25 09:00 06/01/25 10:09 Senna Tablet PO 07/01/25 08:59 2 tab QDAY HEBER Administration Protocol Plan 69 years old male with past medical history of bilateral hernia status post repaired, CKD and prostate cancer status post TURP, admitted for urinary retention status post suprapubic catheter in ED. CT abdominal pelvis showed moderate bilateral hydronephrosis with prominent perinephric stranding and renal scarring, marked cystitis pattern, concerning for vesicoureteral reflux and UTI. # Urinary retention 2/2 to enlearge prostate # Moderate bilateral hydronephrosis # Suprapubic catheter # Acute on chronic kidney disease - improving Chief complain of urinary retention x 3 days. Past medical history of bilateral hernia status post repaired, CKD and prostate cancer status post TURP, admitted for urinary retention status post suprapubic catheter. WBC 19.7, BUN 34, creatinine 4.4, eGFR 14. Last creatinine 2 years ago 2.7. UA positive RBC and WBC. DDx: chronic distal obstructive uropathy vs. UTI. 06/02: Endorsed burning sensation at tip of penis at rest, Morris catheter in place. Creatinine improving. Plan: - Pending urine culture - Consult urology for possible vesicoureteral reflux in the setting of moderate bilateral hydronephrosis with renal scarring - Suprapubic catheter care - Avoid nephrotoxic agents - Antibiotics: Ceftriaxone 1g PPx 06/02-06/09 - Pain: Tylenol 650mg Q6H PRN, [place] 10 PO Q4H PRN - Monitor renal panel # History of prostate cancer status post TURP - Managed outpatient with urologist - Follow up with daughter for urologist's name Health Maintenance: Code status: Full DVT prophylaxis: Ambulation GI prophylaxis: none Diet: Regular Morris: Suprabupic catheter Lines: PIV Supplemental O2: None Disposition: Medsurg Assessment and plan discussed with my attending physician Dr. Mayo and Dr. Rios (PGY-2). Dr. Handy (PGY-1) ? resident care coordinator Attending Provider Attestation/Addendum I have discussed and was present for the essential components of the history, physical examination, diagnosis, and treatment plan with the resident. I agree with the patient's care as documented by the resident and amended herein by me. Basim Mayo DO. Although this document has been carefully reviewed, there may still be some phonetic and other typographical errors. These errors are purely grammatical due to imperfections in the software program and should not be construed in any way to compromise the substance of the patient's medical care during this visit.
--- NOTE | 2025-06-02 09:42 | PC.SS ---
Rounding: On IV ABX, Dr. Shaffer following
[2025-06-02] MEDS: cefTRIAXone/D5w 1gm IV premix 1 GM/50 ML BAG IV (10:04)
--- NOTE | 2025-06-02 11:33 | XR_ITS ---
Examination: Abdomen AP single view Technique: AP portable supine abdomen, single view Exam date and time: June 02, 2025, 1238 hours INDICATIONS: Abdominal distention, history acute renal insufficiency FINDINGS: Moderate air and stool throughout the colon No obstruction No free air These films do not include the hemidiaphragms IMPRESSION: Moderate air and stool throughout the colon No obstruction
[2025-06-02 12:00] VITALS: BP 118/67; PULSE 88; RESP 18; TEMP 36.3; O2SAT 95
[2025-06-02] MEDS: MAGNESIUM CITRATE 300 ML BTL PO (14:59)
[2025-06-02 16:00] VITALS: BP 128/89; PULSE 91; RESP 18; TEMP 36.3; O2SAT 95
[2025-06-02 20:00] VITALS: BP 149/76; PULSE 87; RESP 18; TEMP 36.6; O2SAT 96
[2025-06-03] VITALS: BP 123/74; PULSE 80; RESP 17; TEMP 36.9; O2SAT 94
[2025-06-03 04:00] VITALS: BP 115/64; PULSE 75; RESP 17; TEMP 37.1; O2SAT 93
[2025-06-03 05:41] LABS: Basophils # (Auto) 0.0 Thou/mm3 (0.0-0.2); Basophils % (Auto) 0 % (0-2.5); Eosinophils # (Auto) 0.5 Thou/mm3 (0.0-0.5); Eosinophils % (Auto) 5 % (0-10); Hematocrit 37.4 % (41.0-53.0); Hemoglobin 12.9 g/dL (13.5-16.0); Immature Granulocytes Auto 0.07 Thou/mm3 (0.00-0.00); Lymphocytes # (Auto) 1.5 Thou/mm3 (1.0-4.8); Lymphocytes % (Auto) 15 % (10-50); Mean Corpuscular HGB Conc 34.5 g/dl (31.0-37.0); Mean Corpuscular Hemoglobin 29.4 pg (25.0-35.0); Mean Corpuscular Volume 85 fL (80-100); Monocytes # (Auto) 0.9 Thou/mm3 (0.0-0.8); Monocytes % (Auto) 9 % (0-12); Neutrophils # (Auto) 6.9 Thou/mm3 (1.8-7.7); Neutrophils % (Auto) 70 % (37-80); Nucleated Red Blood Cell # 0.00 Thou/mm3 (0.00-0.00); Nucleated Red Blood Cell % 0 /100 WBC (0); Platelet Count 177 Thou/mm3 (140-440); RDW Standard Deviation 42.6 fL (35.1-43.9); Red Blood Count 4.39 Miln/mm3 (4.50-5.90); White Blood Count 9.9 Thou/mm3 (3.8-10.6)
[2025-06-03 06:10] LABS: Alanine Aminotransferase 23 U/L (10-49); Albumin, Serum 4.0 gm/dL (3.4-4.8); Albumin/Globulin Ratio 1.7 (1.2-2.2); Alkaline Phosphatase 76 U/L (46-116); Anion Gap 11 (7-16); Aspartate Amino Transferase 25 U/L (0-34); BUN/Creatinine Ratio 10 Ratio (12-20); Bilirubin,Total 0.4 mg/dL (0.3-1.2); Blood Urea Nitrogen 32 mg/dL (9-23); Calcium 8.7 mg/dL (8.3-10.6); Calcium (Corrected) 8.7 mg/dL (8.5-10.1); Carbon Dioxide 27.4 mMol/L (20.0-31.0); Chloride 105 mMol/L (98-107); Creatinine (Component) 3.1 mg/dL (0.6-1.3); Estimated Creatinine Clearance 26.8 mL/min (>60); Globulin 2.3 gm/dL (2.3-3.5); Glucose 92 mg/dL (74-106); Magnesium 2.3 mg/dL (1.6-2.6); Osmolality,Calculated 291 (275-295); Phosphorous 3.8 mg/dL (2.4-5.1); Potassium 3.5 mMol/L (3.4-5.1); Sodium 143 mMol/L (136-145); Total Protein 6.3 gm/dL (5.7-8.2); eGFR 21 See Note
[2025-06-03 08:00] VITALS: BP 141/91; PULSE 99; RESP 18; TEMP 36.7; O2SAT 96
[2025-06-03] MEDS: cefTRIAXone/D5w 1gm IV premix 1 GM/50 ML BAG IV (08:17)
--- NOTE | 2025-06-03 08:35 | ESPR_ITS ---
<Statement entered by Miquel Lawton MD - 06/04/25 13:35> Patient seen and examined at bedside. I discussed and supervised with the network intern physician who took care of this patient. I personally saw and examined the patient. I agree with most of the assessment and plan. Plan of care discussed with attending Dr. Wright. Miquel Lawton MD PGY-2 Documentation for date of: 06/03/25 Subjective Subjective Interval history: No acute event overnight. Patient continued to have gross hematuria via suprapubic catheter. Uro, Dr. Shaffer, consulted, recommended patient to follow-up outpatient with his urologist who did the prostate surgery.?Per daughter, Mojgan, [facility] Due to insurance issue, last follow-up was November 2024. Patient currently does not have an urologist. Request for record was made. Plan to consult Dr. Shaffer for potential outpatient follow-up. Patient still reported pain at the tip of his penis, resolved with Fountain. Urine with gross hematuria in the bag but new urine is light yellow in tubing. WBC improving, currently on Rocephin for UTI, pending urine culture. JOHAN improving today. Exam Vital Signs Temp Pulse Resp BP Pulse Ox O2 Del Method O2 Flow Rate 98.7 F 75 17 115/64 93 L Room Air 2 06/03/25 04:00 06/03/25 04:00 06/03/25 04:00 06/03/25 04:00 06/03/25 04:00 06/03/25 04:00 06/01/25 20:00 Narrative Exam GENERAL APPEARANCE: AOx4. NAD, activity normal for age, well developed/ well nourished, no cyanosis, pallor, or diaphoresis. HEENT: Normocephalic atraumatic, no facial trauma, neck is supple. Lids/conjunctiva normal. Mucous membranes moist, nares normal, lips/teeth normal uvula midline without oral pharyngeal erythema, exudate or swelling TMs normal bilaterally. No lymphangitis/lymphedema. CARDIAC: Regular rate and rhythm, S1+S2 heard. No murmurs, rubs, or gallops noted RESPIRATORY: Clear to auscultation bilaterally. No increase work of breathing ABDOMINAL: NBS. NT. Soft, distended, central obesity. Suprapubic catheter in place, draining blood-tinge urine. No pulsatile masses on exam, rebound tenderness, Mccoy sign or pain over Mcburney's point. MUSCLES/EXTREMITIES: No abnormal range of motion, no swelling. DERM: Warm, pink and dry. No rashes, dermatoses, petechiae or lesions. NEUROLOGICAL: Speech is clear and appropriate. Normal level of consciousness. Gait and coordination are normal. 5/5 strength in all extremities. PSYCH: Normal mood and affect. Judgement/competence is appropriate Objective Labs 06/04/25 04:10 06/04/25 04:10 Labs: Laboratory Results - last 24 hr 06/03/25 04:29 WBC 9.9 RBC 4.39 L Hgb 12.9 L Hct 37.4 L MCV 85 MCH 29.4 MCHC 34.5 RDW Std Deviation 42.6 Plt Count 177 D Neut % (Auto) 70 Lymph % (Auto) 15 [place] % (Auto) 9 Eos % (Auto) 5 Baso % (Auto) 0 Neut # (Auto) 6.9 Lymph # (Auto) 1.5 [place] # (Auto) 0.9 H Eos # (Auto) 0.5 Baso # (Auto) 0.0 Immature Gran # (Auto) 0.07 H Absolute Nucleated RBC 0.00 Immature Gran % 1 H Nucleated RBC % 0 Sodium 143 Potassium 3.5 Chloride 105 Carbon Dioxide 27.4 Anion Gap 11 BUN 32 H Creatinine 3.1 H D Estim Creat Clear Calc 26.8 L eGFR 21 L BUN/Creatinine Ratio 10 L Glucose 92 Calculated Osmolality 291 Calcium 8.7 Corrected Calcium 8.7 Phosphorus 3.8 Magnesium 2.3 Total Bilirubin 0.4 AST 25 ALT 23 Alkaline Phosphatase 76 Total Protein 6.3 Albumin 4.0 Globulin 2.3 Albumin/Globulin Ratio 1.7 Quality Measures Quality Measures VTE prophylaxis Advance care planning discussed with:: patient Assessment & Plan Assessment Current Active Medications: Generic Name Dose Route Start Last Admin Trade Name Freq PRN Reason Stop Dose Admin Acetaminophen 650 mg 06/01/25 08:58 Acetaminophen 325 Mg Tablet PO 07/01/25 08:57 Q6H PRN Fever >100.4 and pain 1-3 Hydrocodone Bitart/Acetaminophen 1 tab 06/01/25 08:58 06/03/25 07:10 Hydrocodone/Apap 10/325 Tab PO 06/06/25 08:57 1 tab Q4H PRN Administration PAIN SCALE 4-10(Mod-Sev Ceftriaxone Sodium/Dextrose 1 gm in 50 mls @ 100 mls/hr 06/02/25 09:00 06/03/25 08:17 Rocephin/D5w 1gm Iv Premix IV 06/09/25 08:59 100 mls/hr QDAY HEBER Administration Ondansetron HCl 4 mg 06/01/25 08:58 Ondansetron Inj 2 Mg/Ml Inj 2 Ml IVP 07/01/25 08:57 Q6H PRN NAUSEA OR VOMITING Protocol Sennosides 2 tab 06/01/25 09:00 06/02/25 10:04 Senna Tablet PO 07/01/25 08:59 2 tab QDAY HEBER Administration Protocol Plan 69 years old male with past medical history of bilateral hernia status post repaired, CKD and prostate cancer status post TURP, admitted for urinary retention status post suprapubic catheter in ED. CT abdominal pelvis showed moderate bilateral hydronephrosis with prominent perinephric stranding and renal scarring, marked cystitis pattern, concerning for vesicoureteral reflux and UTI. # Urinary retention 2/2 to enlearge prostate # Moderate bilateral hydronephrosis # Suprapubic catheter # Acute on chronic kidney disease - improving # Hematuria Chief complain of urinary retention x 3 days. Past medical history of bilateral hernia status post repaired, CKD and prostate cancer status post TURP, admitted for urinary retention status post suprapubic catheter. WBC 19.7, BUN 34, creatinine 4.4, eGFR 14. Last creatinine 2 years ago 2.7. UA positive RBC and WBC. DDx: chronic distal obstructive uropathy vs. UTI. 06/03: Urine culture 06/02 no growth to date. Patient continued to have gross hematuria via suprapubic catheter. Uro, Dr. Shaffer, consulted, recommended patient to follow-up outpatient with his urologist who did the prostate surgery.?Per daughter, Mojgan, patient [facility]. Due to insurance issue, last follow-up was November 2024. Patient currently does not have an urologist. Patient still reported pain at the tip of his penis, resolved with Fountain. Urine with gross hematuria in the bag but new urine is light yellow in tubing. Plan: - Pending urine culture - Pending uro record at Dr. Eubanks's office - Plan to consult Dr. Shaffer for potential outpatient follow-up - Avoid nephrotoxic agents - Antibiotics: Ceftriaxone 1g PPx 06/02-06/09 - Pain: Tylenol 650mg Q6H PRN, Fountain 10 PO Q4H PRN - Monitor renal panel # History of prostate cancer status post TURP - Recent insurance problem, unable to see previous urologist, Dr. Eubanks - Pending urology establishment for outpatient followup Health Maintenance: Code status: Full DVT prophylaxis: Ambulation GI prophylaxis: none Diet: Regular Morris: Suprabupic catheter Lines: PIV Supplemental O2: None Disposition: Medsurg Assessment and plan discussed with my attending physician Dr. Wright and Dr. Lawton (PGY-2). Dr. Handy (PGY-1) ? resident care manager rn Attending Provider Attestation/Addendum I have seen and examined the patient. I was physically present for the jeffries portions of the services provided including history, physical exam, diagnosis, treatment plans and orders. I agree with assessment and plan of care as documented by residents. Even though this this note was carefully revised there may still be minor errors in beauty operator apprentice due to voice recognition software. Zaki Wright MD
[2025-06-03 12:00] VITALS: BP 144/77; PULSE 65; RESP 18; TEMP 36.4; O2SAT 95
[2025-06-03 16:00] VITALS: BP 134/82; PULSE 70; RESP 17; TEMP 36.3; O2SAT 95
[2025-06-03 20:00] VITALS: BP 145/83; PULSE 72; RESP 18; TEMP 36.4; O2SAT 95
[2025-06-04] VITALS: BP 134/67; PULSE 78; RESP 17; TEMP 36.7; O2SAT 94
[2025-06-04 04:00] VITALS: BP 143/82; PULSE 69; RESP 18; TEMP 36.3; O2SAT 95
[2025-06-04 05:55] LABS: Basophils # (Auto) 0.1 Thou/mm3 (0.0-0.2); Basophils % (Auto) 1 % (0-2.5); Eosinophils # (Auto) 0.7 Thou/mm3 (0.0-0.5); Eosinophils % (Auto) 8 % (0-10); Hematocrit 43.4 % (41.0-53.0); Hemoglobin 15.2 g/dL (13.5-16.0); Immature Granulocytes Auto 0.20 Thou/mm3 (0.00-0.00); Lymphocytes # (Auto) 1.9 Thou/mm3 (1.0-4.8); Lymphocytes % (Auto) 21 % (10-50); Mean Corpuscular HGB Conc 35.0 g/dl (31.0-37.0); Mean Corpuscular Hemoglobin 29.9 pg (25.0-35.0); Mean Corpuscular Volume 85 fL (80-100); Monocytes # (Auto) 1.0 Thou/mm3 (0.0-0.8); Monocytes % (Auto) 10 % (0-12); Neutrophils # (Auto) 5.5 Thou/mm3 (1.8-7.7); Neutrophils % (Auto) 58 % (37-80); Nucleated Red Blood Cell # 0.00 Thou/mm3 (0.00-0.00); Nucleated Red Blood Cell % 0 /100 WBC (0); Platelet Count 233 Thou/mm3 (140-440); RDW Standard Deviation 42.5 fL (35.1-43.9); Red Blood Count 5.09 Miln/mm3 (4.50-5.90); White Blood Count 9.4 Thou/mm3 (3.8-10.6)
[2025-06-04 05:57] LABS: Alanine Aminotransferase 23 U/L (10-49); Albumin, Serum 4.2 gm/dL (3.4-4.8); Albumin/Globulin Ratio 1.8 (1.2-2.2); Alkaline Phosphatase 88 U/L (46-116); Anion Gap 13 (7-16); Aspartate Amino Transferase 22 U/L (0-34); BUN/Creatinine Ratio 9 Ratio (12-20); Bilirubin,Total 0.3 mg/dL (0.3-1.2); Blood Urea Nitrogen 24 mg/dL (9-23); Calcium 8.8 mg/dL (8.3-10.6); Calcium (Corrected) 8.8 mg/dL (8.5-10.1); Carbon Dioxide 24.3 mMol/L (20.0-31.0); Chloride 104 mMol/L (98-107); Creatinine (Component) 2.7 mg/dL (0.6-1.3); Estimated Creatinine Clearance 30.7 mL/min (>60); Globulin 2.4 gm/dL (2.3-3.5); Glucose 105 mg/dL (74-106); Magnesium 2.5 mg/dL (1.6-2.6); Osmolality,Calculated 285 (275-295); Phosphorous 4.4 mg/dL (2.4-5.1); Potassium 4.1 mMol/L (3.4-5.1); Sodium 141 mMol/L (136-145); Total Protein 6.6 gm/dL (5.7-8.2); eGFR 25 See Note
[2025-06-04 08:00] VITALS: BP 151/97; PULSE 74; RESP 18; TEMP 36.5; O2SAT 95
[2025-06-04] MEDS: cefTRIAXone/D5w 1gm IV premix 1 GM/50 ML BAG IV (08:23)
--- NOTE | 2025-06-04 08:58 | PC.SS ---
Follow up note: Urine cultures pending. Pt will return home upon dc.
[2025-06-04 12:00] VITALS: BP 133/78; PULSE 74; RESP 18; TEMP 36.3; O2SAT 94
--- NOTE | 2025-06-04 12:42 | PC.SS ---
SS spoke to patient's dtr, Renetta who is his caregiver from [facility]. Dtr explained patient's PCP is [facility]. SS called and spoke to Anna from [facility] pt followed up with JON Mary who is under Dr. Bret Rivers on 05-22-25. Per dtr, pt has had Home Health in the past but unable recall name of the HH agency. Dtr is does not have preference for HH. Transfer nurse, Maria Elena is aware.
--- NOTE | 2025-06-04 12:52 | PC.SS ---
SS met with patient and regarding his d/c plan. Pt is alert/oriented. Pt was admitted for JOHAN, Post Renal. Pt confirmed demographic and contact information is correct on facesheet. Pt resides with . Pt ambulates independently without assistance or DME. Pt requires assistance with all ADLs. Pt named his dtr, Renetta Nails medical decision maker if he is unable. Patient?s choice is to return home upon d/c. Dtr, Renetta Nails is patient's [facility] caregiver and she will be caring for pt at home. Dtr will provide transportation home. D/C plan: Return home Next of Kin: rere Morenor, phone# [phone] PCP: JON Mary and Dr. Bret Rivers from [facility] in [place] Address: Correct on facesheet
--- NOTE | 2025-06-04 13:09 | ESCONSULT_ITS ---
RE: YAMINI BENITES : 1955 DATE OF CONSULTATION: 06/02/2025 This is a 69-year-old gentleman. He is seen and chart is reviewed, consult is dictated. He is a Angolan speaking gentleman. CHIEF COMPLAINT: 1. BPH with urinary obstruction and LUTS status post surgical procedure for that in the past. 2. Prostate cancer status post possible robotic radical prostatectomy done in [place]. No pathology report is available. No operative note is available. HISTORY OF PRESENT ILLNESS: This patient was admitted in the hospital through the emergency room with the history of difficulty in urinating, has frequency, urgency, dysuria, and occasional chill. He had placement of suprapubic cystostomy in the emergency room. PAST MEDICAL HISTORY, FAMILY HISTORY, REVIEW OF THE SYSTEM, PERSONAL HISTORY: Please refer to the patient history form dated 06/01/2025 is in HPI in EMR. PHYSICAL EXAMINATION: GENERAL: Condition is satisfactory. He is well developed, well nourished, obese, not in acute distress. HEENT: Normocephalic, atraumatic. Eyes: No anemia or jaundice. NECK: Supple. Trachea central. Thyroid is not enlarged. EXTREMITIES: Revealed no edema, cyanosis, or clubbing. VITAL SIGNS: Stable. They are in HPI in EMR. CHEST: Symmetrical. HEART: Regular rate and rhythm. ABDOMEN: Very obese, no masses. Liver, spleen, kidney not palpable. No CVA tenderness. He has placement of suprapubic cystostomy. COMORBID CONDITIONS: 1. Hypertension. 2. Diabetes mellitus. 3. Chronic kidney disease. 4. Possible prostate cancer status post robotic radical prostatectomy. No pathology report is available and no operative note available. VARIOUS LABS: WBC 19.7, hemoglobin 13.4. Serum creatinine is 4.4, BUN is 34. PLAN: 1. Request operative note and pathology report from [place]. 2. Refer back to urologist in [place], who did his prostatic surgery. He will have all the records. He had CAT scan of the abdomen and pelvis done. They showed bilateral hydronephrosis with prominent perinephric stranding and renal scarring and cystitis. At this time, plan is urine for culture sensitivity, treat according to the culture sensitivity. The patient also has bilateral hydronephrosis as a result of vesicoureteral reflux, should have a repeat ultrasound of the kidney in 1 week's time. I explained this to the patient through the benefits specialist and my recommendation is for him to follow up with the urologist in [place]. DT: 16:40:30 TT: 19:56:00 Ref: - TID: [id number] MTDD
--- NOTE | 2025-06-04 13:22 | ESDS_ITS ---
<Statement entered by Miquel Lawton MD - 06/04/25 16:36> Patient seen and examined at bedside. I discussed and supervised with the photography intern physician who took care of this patient. I personally saw and examined the patient. I agree with most of the assessment and plan. Plan of care discussed with attending Dr. Adriana Lawton MD PGY-2 Planned Discharge Date 06/04/25 DS: Providers Provider Date of admission: 06/01/25 08:58 Primary care physician: Shirley Mary PA-C([facility] Admitting Provider: Pardeep Mayo DO Attending Provider on Admission: Pardeep Mayo DO Consults: 06/01/25 07:25 Referral - Wood Turner Stat Service Needed for Transfer: Urology 06/01/25 12:29 Consult to Urology Routine Comment: Suprapubic Catheter Consulting Provider: Anai Shaffer Attending Provider on DC: Zaki Wright MD Discharging Provider: Unique Handy MD DS: Diagnosis Problem List Completed Was Problem List Reviewed/Reconciled?: Yes Hospital Course Hospital Course Hospital course: 69 years old male with past medical history of bilateral hernia status post repaired, CKD and prostate cancer status post TURP by Dr. Suman Eubanks [place], presented with urinary retention x 3 days with abdominal pain and discomfort. CT abdominal pelvis showed moderate bilateral hydronephrosis with prominent perinephric stranding and renal scarring, marked cystitis pattern, concerning for vesicoureteral reflux and UTI. In ED, WBC 19.7, BUN 34, creatinine 4.4, eGFR 14. UA positive RBC and WBC. Suprapubic catheter was placed. Urology from [facility] was consulted, no need to be transferred at this time. Admitted for JOHAN, urinary retention complicated by UTI requiring suprapubic catheter. In hospital, UTI improved with Rocephin. Urine culture negative. Pain was controlled with [place] 5. JOHAN improved with IVF and suprapubic catheter. Patient is stable and medically cleared for discharge. Discharge patient home with home health for suprapubic catheter care. Advise patient to follow up with urologist outpatient right after discharge. Return precaution given. # Urinary retention 2/2 to enlearge prostate # Moderate bilateral hydronephrosis # Suprapubic catheter # Acute on chronic kidney disease - improving # Hematuria # History of prostate cancer status post TURP Instruction: You have been started on the following medications: - Macrobid twice daily for 2 days - [place] 5 as needed for pain, max 2 times in one day, 2 pills total Please take all other meds as previously prescribed. Please follow up with your primary doctor in 7-10 days. Please follow up with urologist Dr. Post: [address] [place] [address] Return to ED if you develop new or worsening symptoms. Assessment and plan discussed with my attending physician Dr. Wright and Dr. Lawton (PGY-2). Dr. Handy (PGY-1) ? dental resident Status at Discharge Overall status at discharge: patient is progressing back to baseline Time Spent with Patient Time attestation: Total time spent providing and/or coordinating discharge services: 37 minutes Time spent: Greater than 30 minutes Exam Vital Signs Temp Pulse Resp BP Pulse Ox O2 Del Method O2 Flow Rate 97.4 F 74 18 133/78 H 94 L Room Air 2 06/04/25 12:00 06/04/25 12:00 06/04/25 12:00 06/04/25 12:00 06/04/25 12:00 06/04/25 12:00 06/03/25 16:00 Narrative Exam GENERAL APPEARANCE: AOx4. NAD, activity normal for age, well developed/ well nourished, no cyanosis, pallor, or diaphoresis. HEENT: Normocephalic atraumatic, no facial trauma, neck is supple. Lids/conjunctiva normal. Mucous membranes moist, nares normal, lips/teeth normal uvula midline without oral pharyngeal erythema, exudate or swelling TMs normal bilaterally. No lymphangitis/lymphedema. CARDIAC: Regular rate and rhythm, S1+S2 heard. No murmurs, rubs, or gallops noted RESPIRATORY: Clear to auscultation bilaterally. No increase work of breathing ABDOMINAL: NBS. NT. Soft, distended, central obesity. Suprapubic catheter in place, draining blood-tinge urine. No pulsatile masses on exam, rebound tenderness, Mccoy sign or pain over Mcburney's point. MUSCLES/EXTREMITIES: No abnormal range of motion, no swelling. DERM: Warm, pink and dry. No rashes, dermatoses, petechiae or lesions. NEUROLOGICAL: Speech is clear and appropriate. Normal level of consciousness. Gait and coordination are normal. 5/5 strength in all extremities. PSYCH: Normal mood and affect. Judgement/competence is appropriate Discharge Plan Plan Patient Disposition: HOME (Self Care) Patient condition on transfer: Stable Care Plan Goals: Se le porter recetado los siguientes medicamentos: * Macrobid: dos veces al d?a (cada 12 horas) criselda 2 d?as. * [place] 5: seg?n sea necesario para el dolor, m?ximo 2 veces en un d?a, 2 pastillas en total. Por favor, tome todos los dem?s medicamentos orly se le indic? anteriormente. Por favor, programe marva baldo de seguimiento con oneill m?dico de cabecera en un plazo de 7 a 10 d?as. Por favor, programe marva baldo de seguimiento con el ur?logo Dr. Post: [address], [place] [address] Tel?fono: Regrese al Departamento de Emergencias si desarrolla s?ntomas nuevos o si empeoran los actuales. You have been started on the following medications: - Macrobid twice daily for 2 days - [place] 5 as needed for pain, max 2 times in one day, 2 pills total Please take all other meds as previously prescribed. Please follow up with your primary doctor in 7-10 days. Please follow up with urologist Dr. Post: [address], [place] [address] Return to ED if you develop new or worsening symptoms. Prescriptions/Referrals Prescriptions/Med Rec: New nitrofurantoin monohyd/m-cryst [Macrobid] 100 mg capsule 100 mg PO BID 2 Days Qty: 4 0RF Rx Instructions: must administer with a meal/food hydrocodone-acetaminophen 5-325 mg tablet 1 tab PO BID MDD 2 tabs PRN (Reason: pain) Qty: 7 0RF Continued atorvastatin 20 mg tablet 20 mg PO HS amlodipine 10 mg tablet 5 mg PO BID Patient Comments: TAKE ONE TABLET BY MOUTH EVERY DAY aspirin 81 mg tablet,delayed release (DR/EC) 81 mg PO DAILY Patient Comments: TAKE ONE TABLET BY MOUTH EVERY DAY metoprolol succinate 25 mg tablet extended release 24 hr 25 mg PO Q12H Patient Comments: TAKE ONE TABLET BY MOUTH EVERY DAY ferrous sulfate 325 mg (65 mg iron) tablet 325 mg PO DAILY Patient Comments: TAKE ONE TABLET BY MOUTH EVERY DAY Gemtesa 75 mg tablet 75 mg PO QDAY solifenacin 10 mg tablet 10 mg PO .daily Patient Comments: TAKE ONE TABLET BY MOUTH DAILY Held losartan-hydrochlorothiazide 100-25 mg tablet 1 tab PO DAILY Hold Instructions: Resume on 06/18/25. Do NOT resume until speaking to your primary doctor Referrals: Usman ([facility]),BENNY Watson [Primary Care Provider] Patient/Caregiver Discharge Instructions Discharge Activity: activity as tolerated Education Materials: Anatomy of the Male Urinary Tract, Monitoring Kidney Health, How Your Kidneys Work Print Language: Taiwanese Stand Alone Forms: Ashlee Award Info., Patient Portal Info Letter Discharge Order Discharge Orders: Discharge (Routine); Ordered 06/04/25 Ordered By: Miquel Lawton Quality Discharge Quality Measures VTE prophylaxis Attestestation MD Attestation I have seen and examined the patient. I was physically present for the jeffries portions of the services provided including history, physical exam, diagnosis, treatment plans and orders. I agree with assessment and plan of care as documented by residents. Patient seen and examined at bedside this morning. Appears comfortable and denies any new complaints. Continues to have clear pinkish urine in the bag. His penile pain has improved . Vital signs are stable. Lab results show improving hemoglobin, 15.2 today from 12.9 yesterday. Kidney function continues to improve, BUN/creatinine of 24/2.7. Discussed with urology, agreed on patient being stable for discharge with suprapubic catheter. Patient is recommended to follow-up with PCP and urology. We will continue 2 more days of nitrofurantoin for his UTI. Even though this this note was carefully revised there may still be minor errors in sql report writer due to voice recognition software. Zaki Wright MD
[2025-06-04 16:00] VITALS: BP 152/92; PULSE 87; RESP 19; TEMP 36.7; O2SAT 96
--- NOTE | 2025-06-05 17:56 | PC.CM ---
Patient accepted by [facility] and start of care date set for 06/07.
== END 2025-06-04 15:50 | disposition home health service (06) | DRG 690 ==
LOC: SERX 06-01 05:58 → SERHOLD 06-01 09:16 → S3NX 06-01 10:17
PROVIDERS: Nurse Practitioner Family; Admitting Provider Student in an Organized Health Care Education/Training Program; Emergency Provider Emergency Medicine; PCP Physician Assistant; Visit Provider Student in an Organized Health Care Education/Training Program
DX: N13.6 Pyonephrosis (principal); I12.9 Hypertensive chronic kidney disease with stage 1 through stage 4 chronic kidney disease, or unspecified chronic kidney disease; N18.9 Chronic kidney disease, unspecified; E11.22 Type 2 diabetes mellitus with diabetic chronic kidney disease; N17.9 Acute kidney failure, unspecified; N40.1 Benign prostatic hyperplasia with lower urinary tract symptoms; R33.8 Other retention of urine; Z85.46 Personal history of malignant neoplasm of prostate; Z90.79 Acquired absence of other genital organ(s)
CPT/HCPCS: 36415; 51702; 74018; 74176; 80053; 80069; 81001; 82436; 82570; 83690; 83735; 84100; 84133; 84156; 84300; 84540; 85025; 87086; 96365; 96375; 96376; 99283; A4314; J0696; J0780; J3010; A9270

== ENCOUNTER 2025-06-13 17:42 | Emergency (ER) | payer MEDICARE, SELFPAY ==
[2025-06-13 18:04] VITALS: BP 146/79; PULSE 88; RESP 18; TEMP 36.7; O2SAT 97
--- NOTE | 2025-06-13 18:41 | EDRME_ITS ---
Rapid Medical Screening Exam [facility] Arrival date/time: 06/13/25 17:42 69M with history of CKD, and prostate cancer s/p TURP by Dr. Suman Eubanks [place], presented with suprapubic catheter malfunction that was placed here during previous admission. Patient's upcoming uro appt is on the . Patient does not know about any scheduled void trial. Chief Complaint: Urogenital-Male Vital signs: Vital Signs Temperature 98.0 F 06/13/25 18:04 Pulse Rate 88 06/13/25 18:04 Respiratory Rate 18 06/13/25 18:04 Blood Pressure 146/79 H 06/13/25 18:04 Pulse Oximetry (%) 97 06/13/25 18:04 Oxygen Delivery Method Room Air 06/13/25 18:04 Exam: Unremarkable Clinical Impression: Suprapubic catheter malfunction
--- NOTE | 2025-06-13 21:36 | PD.EDMALE ---
ED Male Genitalurinary RME/HPI General Chief complaint: Urogenital-Male Stated complaint: CATHETER OUT Time Seen by Provider: 06/13/25 18:43 Arrival date/time: 06/13/25 17:42 RME / HPI RME / HPI Narrative: 06/13/25 17:42 69M with history of CKD, and prostate cancer s/p TURP by Prashant Fair, presented with suprapubic catheter malfunction that was placed here during previous admission. Patient's upcoming uro appt is on the . Patient does not know about any scheduled void trial. DR. ESPANA MAIN ED EVALUATION: Patient with Hx of Prostate CA post-TURP presented with acute urinal retention on 06/01/25 requiring suprapubic catheter placement with noted acute on chronic kidney disease which improved after discharge. Now presenting after catheter accidentally dislodged. No fever, chills, or vomiting. Patient has since been urinating earlier today. PMH: Heart Murmur, Hypercholesterolemia, Hypertension, Prostate Cancer treated with prostatectomy alone, CKD, BPH PSH: TURP, Prostatectomy Allergies: NKDA Social: Non-smoker, Non-drinker, No illicit drug abuse Exam: Unremarkable Impression: Suprapubic catheter malfunction Related Data Home Medications ?Medication ?Instructions ?Recorded ?Confirmed amlodipine 10 mg tablet 5 mg PO BID 05/25/21 06/01/25 aspirin 81 mg tablet,delayed 81 mg PO DAILY 05/25/21 06/01/25 release atorvastatin 20 mg tablet 20 mg PO HS 05/25/21 06/01/25 losartan 100 1 tab PO DAILY 05/25/21 06/01/25 mg-hydrochlorothiazide 25 mg tablet Held on 06/04/25. Instructions: Resume on 06/18/25. Do NOT resume until speaking to your primary doctor ferrous sulfate 325 mg (65 mg 325 mg PO DAILY 06/01/25 06/01/25 iron) tablet metoprolol succinate 25 mg 25 mg PO Q12H 06/01/25 06/01/25 tablet,extended release 24 hr solifenacin 10 mg tablet 10 mg PO .daily 06/01/25 06/01/25 vibegron 75 mg tablet (Gemtesa) 75 mg PO QDAY 06/01/25 06/01/25 Previous Rx's ?Medication ?Instructions ?Recorded hydrocodone 5 mg-acetaminophen 325 1 tab PO BID PRN pain #7 tabs 06/04/25 mg tablet Allergies Allergy/AdvReac Type Severity Reaction Status Date / Time No Known Allergies Allergy Verified 06/13/25 17:43 Review of Systems Review of Systems Systems Reviewed: All systems reviewed, normal except as documented Past Medical History Past Medical History CARDIAC: Positive Hypercholesterolemia and Hypertension GENITOURINARY: Positive Renal Disease, Prostate Cancer and Benign Prostatic Hyperplasia ENT: Positive Cataracts OTHER HISTORY: Positive Cancer and Prostate Cancer Family History FAMILY HISTORY: Positive Family Cancer ED Exam Narrative Physical exam: GEN. APPEARANCE: The patient is alert awake oriented X-3 under no distress, lying down comfortably, does not look ill/toxic. Patient has good eye contact. Patient is cooperative. VITALS: All vitals were reviewed and the pulse ox is 97%, which is normal according to my interpretation HEENT: Normocephalic, atraumatic and nontender. Pupils are equal and reactive. Oral mucosa is moist. NECK: Supple, nontender, no meningismus, no JVD. There is no thyromegaly and no lymphadenopathy. CHEST: Nontender on palpation no deformity and no crepitus. CARDIOVASCULAR: Heart regular rhythm, no murmur or gallop rub or extra beats. LUNGS: Clear to auscultation bilaterally with symmetrical chest rise. No laboring tachypnea or wheezing. No intercostal subcostal retraction. No rales and no rhonchi. ABDOMEN: Soft, flat, nontender to palpation, no guarding or rebound tenderness. There are no abnormal masses palpated. No pulsatile masses or bruits. Active and normal bowel sounds. EXTREMITIES: Normal inspection and palpation. No edema. No cyanosis. Patient is able to move all 4 extremities well SKIN: Warm and dry, no rashes noted. MUSCULOSKELETAL: No lumbar or midline bony tenderness. There is no CVA tenderness. No paraspinal muscle spasm or tenderness. NEURO: Cranial nerves II through XII grossly intact. There are no focal neurologic deficits noted. GCS is 15 PSYCHIATRIC: Patient is in normal mood and affect, cooperative. LYMPHATICS: No major lymphadenopathy noted. Course Quality Measures none Orders Category Date Time Status [place] to [place] Routine Care 06/13/25 21:38 Ordered CBC [CBC] Stat Lab 06/13/25 21:56 Received CMP [Comprehensive Metabolic Panel] Stat Lab 06/13/25 21:56 Completed Urinalysis, C/S if Indicated Stat Lab 06/13/25 21:38 Ordered Vital Signs Vital signs: Vital Signs Temperature 98.0 F 06/13/25 18:04 Pulse Rate 88 06/13/25 18:04 Respiratory Rate 18 06/13/25 18:04 Blood Pressure 146/79 H 06/13/25 18:04 Pulse Oximetry (%) 97 06/13/25 18:04 Oxygen Delivery Method Room Air 06/13/25 18:04 Urogenital - Male MDM Narrative MDM Narrative:: Scribe Attestation: ISally, am scribing for and in the presence of Dr. Figueroa. Provider Notation: Although this document has been carefully reviewed, there may still be some phonetic and other typographical errors. These errors are purely grammatical due to imperfections in the software program and should not be construed in any way to compromise the substance of the patient's medical care during this visit. Patient with Hx of Prostate CA post-TURP presented with acute urinal retention on 06/01/25 requiring suprapubic catheter placement with noted acute on chronic kidney disease which improved after discharge. Now presenting after catheter accidentally dislodged. Please see PE findings. Immediately apparent that patient's catheter was dislodged and patient had began to void normally earlier during the day. It was unclear whether patient was fully emptying his bladder and lucas catheter was ordered. Patient however, abruptly eloped prior to final disposition. Final diagnoses includes Dislodgment of suprapubic catheter and Hx of Renal Insufficiency. Patient data External records reviewed:: [facility] previous records (Reviewed prior ED records from 06/01/25. Patient was seen for Acute urinary retention.) Clinical information provided by:: patient Social determinants that could affect healthcare access:: none Patient has the following chronic illnesses:: Hypercholesterolemia, Hypertension, Renal Disease, Prostate Cancer, Benign Prostatic Hyperplasia, Cataracts How is presenting disease/condition affected by chronic disease/condition?: exacerbated by Evaluation data The following diagnostics were reviewed and interpreted by me:: lab results Lab and/or radiology exams considered but not ordered:: None Interpretation Summary: See MDM above Medications / Prescriptions Medications or Prescriptions considered but not ordered:: None Medication administrations:: See above if any Consultations Consultation(s) initiated? (list below): No Diagnosis Urogenital Male Differential Diagnosis: urinary tract infection, urethritis, epididymitis, acute retention of urine and inguinal hernia Most likely diagnosis given after review of the tests above:: Dislodgment of suprapubic catheter and Hx of Renal Insufficiency Admission Indicated Admission indicated?: not indicated Explain why admission is indicated or not indicated:: Patient does not meet admission criteria Admission Request Was there a request for admission?: No Disposition Plan Disposition Plan: other (specify) (Eloped) Discharge Plan Plan Patient Disposition: Elopement Prescriptions/Referrals Prescriptions/Med Rec: No Action losartan-hydrochlorothiazide 100-25 mg tablet 1 tab PO DAILY atorvastatin 20 mg tablet 20 mg PO HS amlodipine 10 mg tablet 5 mg PO BID Patient Comments: TAKE ONE TABLET BY MOUTH EVERY DAY aspirin 81 mg tablet,delayed release (DR/EC) 81 mg PO DAILY Patient Comments: TAKE ONE TABLET BY MOUTH EVERY DAY metoprolol succinate 25 mg tablet extended release 24 hr 25 mg PO Q12H Patient Comments: TAKE ONE TABLET BY MOUTH EVERY DAY ferrous sulfate 325 mg (65 mg iron) tablet 325 mg PO DAILY Patient Comments: TAKE ONE TABLET BY MOUTH EVERY DAY Gemtesa 75 mg tablet 75 mg PO QDAY solifenacin 10 mg tablet 10 mg PO .daily Patient Comments: TAKE ONE TABLET BY MOUTH DAILY hydrocodone-acetaminophen 5-325 mg tablet 1 tab PO BID MDD 2 tabs PRN (Reason: pain) Qty: 7 0RF Referrals: Shirley Mary FNP ([id number]) [Primary Care Provider] - In 1 week Problem List Clinical Impression: Suprapubic catheter dysfunction, History of renal insufficiency Patient/Caregiver Discharge Instructions Print Language: Wallisian
[2025-06-13 22:14] LABS: Basophils # (Auto) 0.1 Thou/mm3 (0.0-0.2); Basophils % (Auto) 1 % (0-2.5); Eosinophils # (Auto) 0.6 Thou/mm3 (0.0-0.5); Eosinophils % (Auto) 5 % (0-10); Hematocrit 40.1 % (41.0-53.0); Hemoglobin 13.5 g/dL (13.5-16.0); Immature Granulocytes Auto 0.09 Thou/mm3 (0.00-0.00); Lymphocytes # (Auto) 2.2 Thou/mm3 (1.0-4.8); Lymphocytes % (Auto) 17 % (10-50); Mean Corpuscular HGB Conc 33.7 g/dl (31.0-37.0); Mean Corpuscular Hemoglobin 29.5 pg (25.0-35.0); Mean Corpuscular Volume 88 fL (80-100); Monocytes # (Auto) 1.0 Thou/mm3 (0.0-0.8); Monocytes % (Auto) 8 % (0-12); Neutrophils # (Auto) 8.4 Thou/mm3 (1.8-7.7); Neutrophils % (Auto) 68 % (37-80); Nucleated Red Blood Cell # 0.00 Thou/mm3 (0.00-0.00); Nucleated Red Blood Cell % 0 /100 WBC (0); Platelet Count 233 Thou/mm3 (140-440); RDW Standard Deviation 41.2 fL (35.1-43.9); Red Blood Count 4.58 Miln/mm3 (4.50-5.90); White Blood Count 12.4 Thou/mm3 (3.8-10.6)
[2025-06-13 22:25] LABS: Alanine Aminotransferase 19 U/L (10-49); Albumin, Serum 4.5 gm/dL (3.4-4.8); Albumin/Globulin Ratio 1.7 (1.2-2.2); Alkaline Phosphatase 106 U/L (46-116); Anion Gap 11 (7-16); Aspartate Amino Transferase 17 U/L (0-34); BUN/Creatinine Ratio 11 Ratio (12-20); Bilirubin,Total 0.3 mg/dL (0.3-1.2); Blood Urea Nitrogen 28 mg/dL (9-23); Calcium 9.9 mg/dL (8.3-10.6); Calcium (Corrected) 9.9 mg/dL (8.5-10.1); Carbon Dioxide 28.6 mMol/L (20.0-31.0); Chloride 101 mMol/L (98-107); Creatinine (Component) 2.6 mg/dL (0.6-1.3); Globulin 2.6 gm/dL (2.3-3.5); Glucose 114 mg/dL (74-106); Osmolality,Calculated 287 (275-295); Potassium 4.0 mMol/L (3.4-5.1); Sodium 141 mMol/L (136-145); Total Protein 7.1 gm/dL (5.7-8.2); eGFR 26 See Note
--- NOTE | 2025-06-13 22:35 | PC.NURSE ---
PER RN RENEA PT DID NOT WANT TO WAIT AND LEFT
== END 2025-06-13 22:36 | disposition left against medical advice (07) ==
LOC: SERX 19:32
PROVIDERS: Emergency Provider Emergency Medicine; PCP Nurse Practitioner Primary Care
DX: T83.010A Breakdown (mechanical) of cystostomy catheter, initial encounter (principal); Y83.3 Surgical operation with formation of external stoma as the cause of abnormal reaction of the patient, or of later complication, without mention of misadventure at the time of the procedure; Z53.29 Procedure and treatment not carried out because of patient's decision for other reasons
CPT/HCPCS: 36415; 80053; 81001; 85025; 99282